=== PATIENT | male | born 1970 | race Caucasian/White ===

== ENCOUNTER 2021-08-13 07:57 | Day surgery (SDCO) | payer OTHER ==
[~2021-08-13] VITALS: Ht 188 cm; Wt 144.9 kg
[2021-08-13 08:49] LABS: BASOPHIL 0.4 % (0-2); EOSINOPHIL 2.7 % (0-5); HCT 43.9 % (42.0-52.0); HGB 15.1 g/dl (13.2-18.0); LYMPHOCYTE 40.6 % (15-48); MCH 28.4 pg (25.0-31.0); MCHC 34.4 g/dL (32.0-36.0); MCV 82.7 fL (78.0-100.0); MONOCYTE 11.8 % (0-12); MPV 10.2 fL (6.0-9.5); NEUTROPHIL 43.7 % (41-80); NRBC 0; PLT 225 K/uL (150-400); RBC 5.31 M/uL (4.70-6.00); RDW 12.5 % (11.5-14.0); WBC 7.1 K/uL (4.0-10.5)
[2021-08-13 09:06] LABS: ALBUMIN 3.8 g/dL (3.4-5.0); BILIRUBIN - TOTAL 0.3 mg/dL (0.2-1.0); CREATININE 0.92 mg/dL (0.67-1.17); GLOBULIN (CALCULATION) 3.3 g/dL; TOTAL PROTEIN 7.1 g/dL (6.4-8.2)
[2021-08-13 12:06] LABS: BILIRUBIN NEGATIVE (NEGATIVE); BLOOD NEGATIVE Ery/uL (NEGATIVE); CLARITY CLEAR (CLEAR); COLOR YELLOW (YELLOW); GLUCOSE (U) NORMAL (NORMAL); LEUKOCYTES NEGATIVE Leu/uL (NEGATIVE); NITRITE NEGATIVE (NEGATIVE); PROTEIN NEGATIVE (NEGATIVE); SPECIFIC GRAVITY <=1.005 (1.001-1.030); UROBILINOGEN 0.2 mg/dL (0.2-1.0)
[2021-08-13 12:10] LABS: AMPHETAMINES NEGATIVE (NEGATIVE); BARBITURATES NEGATIVE (NEGATIVE); ECSTASY (MDMA) NEGATIVE (NEGATIVE); MARIJUANA (THC) NEGATIVE (NEGATIVE); METHADONE NEGATIVE (NEGATIVE); OPIATES NEGATIVE (NEGATIVE); OXYCODONE NEGATIVE (NEGATIVE)
[2021-08-13] MEDS ORDERED: FENOFIBRATE54 MG PO (14:24)
[2021-08-13] MEDS ORDERED: SIMVASTATIN20 MG PO (14:25)
[2021-08-13] MEDS ORDERED: LYSODREN500 MG PO (14:25)
[2021-08-13] MEDS ORDERED: LOPRESSOR25 MG PO (14:27)
[2021-08-13] MEDS ORDERED: LANTUS SOL100 UNIT/1 SC (14:28)
[2021-08-13] MEDS ORDERED: HYDROCORTISONE10 MG PO (14:29)
[2021-08-13] MEDS ORDERED: LISINOPRIL20 MG PO (14:30)
[2021-08-13] MEDS ORDERED: NOVOLOG FL100 UNIT/1 SC (14:31)
[2021-08-13] MEDS ORDERED: METFORMIN HCL1000 MG PO (14:31)
[2021-08-13] MEDS ORDERED: ASPIRIN EC81 MG PO (14:32)
[2021-08-13] MEDS ORDERED: CITALOPRAM HBR10 MG PO (14:32)
[2021-08-14 06:04] LABS: BASOPHIL 0.4 % (0-2); EOSINOPHIL 3.9 % (0-5); HGB 14.5 g/dl (13.2-18.0); LYMPHOCYTE 50.2 % (15-48); MCH 28.8 pg (25.0-31.0); MCHC 34.5 g/dL (32.0-36.0); MCV 83.5 fL (78.0-100.0); MONOCYTE 12.8 % (0-12); NEUTROPHIL 32.3 % (41-80); NRBC 0; PLT 217 K/uL (150-400); RBC 5.03 M/uL (4.70-6.00); RDW 12.5 % (11.5-14.0); WBC 4.9 K/uL (4.0-10.5)
[2021-08-14 06:27] LABS: BUN/CREAT RATIO (CALC) 14.5 RATIO; CREATININE 0.55 mg/dL (0.67-1.17); POTASSIUM 4.2 mmol/L (3.5-5.1)
[2021-08-14] MEDS ORDERED: LANTUS SOL100 UNIT/1 SC (08:18)
[2021-08-14] MEDS ORDERED: LOPRESSOR25 MG PO (08:18)
[2021-08-14] MEDS ORDERED: FENOFIBRATE54 MG PO (08:18)
[2021-08-14] MEDS ORDERED: ASPIRIN EC81 MG PO (08:18)
[2021-08-14] MEDS ORDERED: HYDROCORTISONE10 MG PO ×2 (08:18)
[2021-08-14] MEDS ORDERED: SIMVASTATIN20 MG PO (08:18)
[2021-08-14] MEDS ORDERED: METFORMIN HCL1000 MG PO (08:18)
[2021-08-14] MEDS ORDERED: NOVOLOG FL100 UNIT/1 SC (08:18)
[2021-08-14] MEDS ORDERED: CITALOPRAM HBR10 MG PO (08:18)
== END 2021-08-14 09:35 | disposition home or self-care (01) ==
LOC: FER 07:57 → FTCU 09:34
PROVIDERS: Emergency Medicine; Nurse Practitioner Acute Care; ADMIT Family Medicine
DX: R55 Syncope and collapse (principal); T38.0X6A Underdosing of glucocorticoids and synthetic analogues, initial encounter; E27.40 Unspecified adrenocortical insufficiency; C74.90 Malignant neoplasm of unspecified part of unspecified adrenal gland; G47.33 Obstructive sleep apnea (adult) (pediatric); E11.9 Type 2 diabetes mellitus without complications; E78.00 Pure hypercholesterolemia, unspecified; U07.1 COVID-19; D84.821 Immunodeficiency due to drugs; E03.9 Hypothyroidism, unspecified; N17.9 Acute kidney failure, unspecified; I10 Essential (primary) hypertension; Z86.16 Personal history of COVID-19; R77.8 Other specified abnormalities of plasma proteins; Z79.4 Long term (current) use of insulin; Z79.84 Long term (current) use of oral hypoglycemic drugs
CPT/HCPCS: 36415; 71046; 80048; 80053; 80305; 81003; 82530; 82962; 83036; 84439; 84443; 84484; 85025; 93005; G0378; J1720; J1815; U0002